=== PATIENT | male | born 1995 | race Caucasian/White ===

== ENCOUNTER 2016-08-05 21:09 | Emergency (ER) | payer BC, OTHER ==
[~2016-08-05] VITALS: Ht 182.9 cm; Wt 84.2 kg
[2016-08-05 21:09] VITALS: Ht 182.9 cm; Wt 84.2 kg
[~2016-08-05 21:09] MED LIST: CIPR-280 PO; no routine meds
--- OUTSIDE RECORDS SUMMARY | 2016-08-05 21:13 | XMS REPORT | Continuity of Care Document ---
Author Author [facility] Organization [facility] Address Unknown Phone Unavailable Support Name Relationship Address Phone GORAN ACKERMAN MD Caregiver [address] [place] [address] [place] [address] MICHAEL KIRK Next Of Kin [address] [place], [place] [phone] Insurance Providers Payer Name Policy Number Subscriber Name Relationship Self Pay Tomás Kirk 16 Self Advance Directives Directive Response Recorded Date/Time Advanced Directives Type None 06/11/14 12:26am Problems Medical Problems Problem Onset Date Status 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 Plan of Care No plan of care. Functional Status Query Response Date Recorded Physical Hygiene Self June 11, 2014 12:30am Disabilities None June 11, 2014 12:30am Devices Used None June 11, 2014 12:30am Dressing Self June 11, 2014 12:30am Ambulation Self June 11, 2014 12:30am Diet Self June 11, 2014 12:30am Mental Status Alert Oriented June 11, 2014 3:50am Disabilities None June 11, 2014 12:30am Devices Used None June 11, 2014 12:30am Physical Hygiene Self June 11, 2014 12:30am Dressing Self June 11, 2014 12:30am Ambulation Self June 11, 2014 12:30am Diet Self June 11, 2014 12:30am Allergies, Adverse Reactions, Alerts Allergen Type Severity Reaction Status Last Updated No Known Allergies Active 06/11/14 Immunizations Name Given Type Hx Influenza Vaccination No Historical Hx Pneumococcal Vaccination No Historical Hx Tetanus, Diptheria, Pertussis Y 2010 Historical Hx Influenza Vaccination No Historical Hx Tetanus, Diptheria, Pertussis Y 2009 Historical Vital Signs Acute Vital Signs Vital Response Date/Time Temperature (Fahrenheit) 99.6 deg F (96.8 - 99.1) Temperature (Calculated Celsius) 37.01461 degrees C (36.0 - 37.3) Pulse Rate (adult) 107 bpm (60 - 100) Respiratory Rate 24 breaths/min (10 - 20) O2 Sat by Pulse Oximetry 96 % (90 - 100) Blood Pressure 120/60 mm Hg Height 6 ft 1 in Weight 176 lb Body Mass Index 23.0 kg/m^2 Results Test Source Date Result Interp. Ref. Range Comments Monoscreen June 11, 2014 12:49am Negative - Influenza Type B Antigen June 11, 2014 12:49am Negative - Negative for Flu B protein antigen. Assay sensitivity is90%. Influenza Type A Antigen June 11, 2014 12:49am Negative - Negative for Flu A protein antigen. Assay sensitivity is90%. Reactive Lymphocytes # June 11, 2014 12:49am 0.4 T/MM3 H 0-0 Monocytes # (Manual) June 11, 2014 12:49am 0.9 T/MM3 H 0-0.8 Lymphocytes # (Manual) June 11, 2014 12:49am 0.7 T/MM3 L 1-4.8 Neutrophils # (Manual) June 11, 2014 12:49am 2.5 T/MM3 N 1.8-7.7 Band Neutrophils # June 11, 2014 12:49am 0.6 T/MM3 - Reactive Lymphocytes % June 11, 2014 12:49am 7.0 % H 0-0 Monocytes % (Manual) June 11, 2014 12:49am 18.0 % H 0-9.0 Lymphocytes % (Manual) June 11, 2014 12:49am 14.0 % L 23-45 Band Neutrophils % June 11, 2014 12:49am 12.0 % H 0-6 Neutrophils % (Manual) June 11, 2014 12:49am 49.0 % N 33-66 Alanine Aminotransferase (ALT/SGPT) June 11, 2014 12:49am 38 U/L N 21-72 Albumin June 11, 2014 12:49am 4.7 G/DL N 3.5-5.0 Albumin/Globulin Ratio June 11, 2014 12:49am 1.5 RATIO N 1.1-2.2 Alkaline Phosphatase June 11, 2014 12:49am 55 U/L N 38-126 Anion Gap June 11, 2014 12:49am 14 MEQ/L N 5-15 Aspartate Amino Transf (AST/SGOT) June 11, 2014 12:49am 43 U/L N 17- 59 BUN/Creatinine Ratio June 11, 2014 12:49am 13 RATIO N 6-26 Blood Urea Nitrogen June 11, 2014 12:49am 15.0 MG/DL N 9-20 Calcium Level June 11, 2014 12:49am 9.3 MG/DL N 8.4-10.2 Calculated Osmolality June 11, 2014 12:49am 267 MOSM/KG N 261-280 Carbon Dioxide Level June 11, 2014 12:49am 30 MEQ/L N 22-30 Chemistry Specimen Hemolysis June 11, 2014 12:49am < 15 0-25 0-25 : No Hemolysis.26-70: Slight Hemolysis - can falsely elevate K and Urine Protein. 71-285: Moderate Hemolysis - can falsely elevate K, Troponin I, CA 19-9, PTH, CSF GLucose, and Urine Protein, and can falsely decrease Phenytoin. 286-999: Gross Hemolysis - can falsely elevate K, Troponin I, CA 19-9, PTH, CSF Glucose, and Urine Protine, and can falsely decrease Phenytoin. Recommend specimen recollection. Chloride Level June 11, 2014 12:49am 94 MEQ/L L 98-107 Creatinine June 11, 2014 12:49am 1.2 MG/DL N 0.8-1.5 Globulin June 11, 2014 12:49am 3.1 G/DL N 2.4-3.6 Glomerular Filtration Rate Calc June 11, 2014 12:49am 77 - Glucose Level June 11, 2014 12:49am 95 MG/DL N 75-110 Hematocrit June 11, 2014 12:49am 45.2 % N 41-53 Hemoglobin June 11, 2014 12:49am 15.9 GM/DL N 13.5-17.5 Icterus Index June 11, 2014 12:49am < 2 0-7 Lab Scanned Report October 07, 2013 7:29pm LAB TEST FORM REQUEST [id number] - Mean Corpuscular Hemoglobin June 11, 2014 12:49am 30.1 UUG N 26-34 Mean Corpuscular Hemoglobin Concent June 11, 2014 12:49am 35.2 GM/DL N 31-37 Mean Corpuscular Volume June 11, 2014 12:49am 85.4 UM3 N 80-100 Mean Platelet Volume June 11, 2014 12:49am 10.2 UM3 N 9.4-12.4 Platelet Count June 11, 2014 12:49am 133 T/MM3 N 130-400 Potassium Level June 11, 2014 12:49am 3.7 MEQ/L N 3.6-5 RDW Standard Deviation June 11, 2014 12:49am 36.0 FL L 36.9-50.2 Red Blood Count June 11, 2014 12:49am 5.29 M/MM3 N 4.50-5.90 Sodium Level June 11, 2014 12:49am 138 MEQ/L N 134-144 Total Bilirubin June 11, 2014 12:49am 0.70 MG/DL N 0.20-1.30 Total Protein June 11, 2014 12:49am 7.8 G/DL N 6.3-8.2 Turbidity June 11, 2014 12:49am < 20 0-20 Urinalysis Comment June 11, 2014 1:00am Microscopic not ind. - Has specimen been collected/obtained? Y Urine Bilirubin June 11, 2014 1:00am Negative - Has specimen been collected/obtained? Y Urine Blood June 11, 2014 1:00am Negative - Has specimen been collected/obtained? Y Urine Collection Type June 11, 2014 1:00am Voided-not cc-midstr - Has specimen been collected/obtained? Y Urine Color June 11, 2014 1:00am Yellow - Has specimen been collected/obtained? Y Urine Glucose (UA) June 11, 2014 1:00am Negative - Has specimen been collected/obtained? Y Urine Ketones June 11, 2014 1:00am Negative - Has specimen been collected/obtained? Y Urine Leukocyte Esterase June 11, 2014 1:00am Negative - Has specimen been collected/obtained? Y Urine Nitrite June 11, 2014 1:00am Negative - Has specimen been collected/obtained? Y Urine Protein June 11, 2014 1:00am Negative - Has specimen been collected/obtained? Y Urine Specific [place] June 11, 2014 1:00am 1.010 L - Has specimen been collected/obtained? Y Urine Turbidity June 11, 2014 1:00am Clear - Has specimen been collected/obtained? Y Urine Urobilinogen June 11, 2014 1:00am 0.2 EU/DL - Has specimen been collected/obtained? Y Urine pH June 11, 2014 1:00am 6.0 - Has specimen been collected/ obtained? Y White Blood Count June 11, 2014 12:49am 5.0 T/MM3 N 4.5-11.0 Procedures No known history of procedures. Encounters Encounter Location Date/Time Departed Emergency Room [facility] 06/11/14 12:21am Recent Diagnosis
--- NOTE | 2016-08-05 21:43 | NUR ---
PROVIDER Maya JOHNSON FANCY WIRE DRAWER IN TO SEE PATIENT.
--- NOTE | 2016-08-05 21:49 | ERPDOC ---
Departure Disposition Decision Date: Aug 05, 2016 Disposition Decision Time: 22:38 Disposition: 01 DISCHARGED HOME, SELF-CARE Impression Impression Impression: Primary Impression: Nausea & vomiting Vomiting type: unspecified Vomiting Intractability: non-intractable Qualified Codes: R11.2 - Nausea with vomiting, unspecified Additional Impression: Carpopedal spasm Severity: Moderate Condition: Stable Seen By: Mid-level only Patient Instructions: Carpopedal Spasm (ED) Problems/Meds/Labs Reviewed?: Yes Medications reviewed and manag: Yes Additional Instructions: Take small frequent sips of clear liquids at home to maintain hydration. If you continue to have problems with the spasms then please follow up with your primary care provider for reevaluation. Your labs today were all normal here. Return to Er with any worsening symptoms or new issues/concerns. Follow up care ordered?: Yes Mental Status: Alert HPI - General Medical General Chief Complaint: Upper Extremity Pain Stated Complaint: CANNOT CONTROL BODY Time Seen by Provider: 21:11 Source: patient Exam Limitations: no limitations HPI - General Medical Initial Comments He was at home tonight and had onset of vomiting around 1700. He vomited x3 and after the third time he had difficulty breathing. He states that it felt hard to breath and then he had onset of spasms in his hands and feet and around his mouth. This lasted for about 5 minutes in varying degrees of spasms he felt. Upon arrival to ER it has lessened quite a bit but he did notice that his right hand did spasm with tightening of the blood pressure cuff. He has never had this happen before. He denies any fever or chills or abdominal pain or diarrhea. Occurred At: home Onset: Rapid Duration: 1 hr Severity: moderate Associated Symptoms: nausea/vomiting (x3 today), DENIES: chest pain, cough, diaphoresis, fever/chills, headaches, loss of appetite, malaise, rash, seizure, shortness of breath, syncope, weakness Hx of Similar Symptoms: No Allergies: Coded Allergies: No Known Allergies (Unverified , 08/05/16) Past History Past Medical History Pt denies signifigant PMH Surgical History Denies Surgeries Vaccines Hx Influenza Vaccination: No Hx Pneumococcal Vaccination: No Hx Tetanus, Diptheria, Pertuss: Yes (2009) Review of Systems Constitutional Constitutional: DENIES: chills, dizziness, fatigue, fever, weakness ENMT Ears: DENIES: drainage, pain Sinuses: congestion (with green mucus), DENIES: rhinorrhea Mouth/Throat: DENIES: painful swallowing, scratchy throat, sore throat Cardiovascular Cardiac: DENIES: chest pain, orthopnea Rhythm/Rate: DENIES: irregular beat, palpitations Pulmonary Respiratory: DENIES: cough, dyspnea, sputum, tachypnea GI Upper Abdomen: DENIES: nausea, pain, vomiting Lower Abdomen: DENIES: constipation, diarrhea, pain Musculoskeletal General: cramps (bilateral hands and feet) Integumentary Skin: DENIES: rash Neurological General: DENIES: headache, numbness, tingling, weakness Physical Exam General General Nourishment: well nourished, well developed, appears stated age, no acute distress, adult General Body Habitus: well groomed Vitals and Pain First Documented Vital Signs Date Time Temp Pulse Resp B/P Pulse Ox O2 Delivery O2 Flow Rate FiO2 08/05/16 21:09 99.4 101 16 121/65 99 Room Air Weight: Kilograms: 84.200 Height (feet): 6 Height (inches): 0 Triage Pain Scale: RN VS reviewed by Provider: Yes Normal Exams: Neck: Full range of motion, without adenopathy, JVD, bruits or thyromegaly Chest/Resp: Clear all singleton, with good airflow, and symmetry bilaterally CV: Regular rate and rhythm, without murmur or gallop, Pulses 2+ all extremities, capillary refill, <2 seconds all ext., no pedal edema noted Abdomen: Bowel sounds positive, soft, non-tender, non-distended, no hepatosplenomegaly, masses or bruits noted Lymphatic: No lymphadenopathy, or lymphedema noted Musculoskeletal: No tenderness, or deformity noted, good range of motion, all extremities Integumentary: No rashes, hives, or bruising noted Neurologic: Patient is alert, and oriented, cranial nerves, motor/sensory/ cerebellar, exams w/o gross deficits, to observation Psychiatric: Patient exhibits, appropriate attention, emotion and affect ENMT (brief) ENMT Brief: FOUND: TM clear, TM good light reflex, ear canals clear, mucosa moist, normal dentition, normal tonsils, NOT FOUND: lesions, nasal erythema, nasal exudate, nasal swelling, petechiae, pharnyx erythema, tonsillar deviation Differential Diagnoses Considering: Hypo/Hyperglycemia, Hypo/Hyperkalemia, Hypo/Hypernatremia, Other ( hypo/hypercalcemia, anxiety, carpopedal spasms, seizure disorder) Progress Results/Orders Orders Procedure Category Date Status Time Cbc W/Auto LAB 08/05/16 Complete Diff-Reflex Manual Bmp - Basic Metabolic LAB 08/05/16 Complete Panel Lab Results Laboratory Tests Test 08/05/16 22:12 White Blood Count 6.3T/MM3 Red Blood Count 5.34M/MM3 Hemoglobin 16.3GM/DL Hematocrit 45.5% Mean Corpuscular Volume 85.2UM3 Mean Corpuscular Hemoglobin 30.5UUG Mean Corpuscular Hemoglobin Concent 35.8GM/DL RDW Standard Deviation 35.8FL Platelet Count 160T/MM3 Mean Platelet Volume 10.1UM3 Immature Granulocyte % (Auto) % Neutrophils (%) (Auto) % Lymphocytes (%) (Auto) % Monocytes (%) (Auto) % Eosinophils (%) (Auto) % Basophils (%) (Auto) % Absolute Immature Granulocyte (auto T/MM3 Absolute Neutrophils (auto) T/MM3 Absolute Lymphocytes (auto) T/MM3 Absolute Monocytes (auto) T/MM3 Absolute Eosinophils (auto) T/MM3 Absolute Basophils (auto) T/MM3 Neutrophils % (Manual) 79.0% Band Neutrophils % 3.0% Lymphocytes % (Manual) 7.0% Reactive Lymphocytes % 1.0% Monocytes % (Manual) 10.0% Absolute Neutrophils (Manual) 5.0T/MM3 Band Neutrophils # 0.2T/MM3 Lymphocytes # (Manual) 0.4T/MM3 Reactive Lymphocytes # 0.1T/MM3 Monocytes # (Manual) 0.6T/MM3 Red Cell Morphology Comment Normal Turbidity < 20 Sodium Level 145MEQ/L Potassium Level 3.4MEQ/L Chloride Level 102MEQ/L Carbon Dioxide Level 28MEQ/L Anion Gap 15MEQ/L Blood Urea Nitrogen 18.0MG/DL Creatinine 0.9MG/DL Glomerular Filtration Rate Calc 105 BUN/Creatinine Ratio 20RATIO Glucose Level 117MG/DL Calculated Osmolality 282MOSM/KG Calcium Level 10.2MG/DL Icterus Index < 2 Chemistry Specimen Hemolysis < 15 Progress Progress CBC and BMP today are essentially normal. K+ is 3.4 and sodium is 145. Calcium is normal however. Will have him monitor for continued symptoms at home. Follow up with his PCP if any further concerns. TAMMIE JOHNSON APRN Aug 05, 2016 21:49
--- NOTE | 2016-08-05 22:15 | NUR ---
TOUR PRODUCTION SUPERVISOR IN ROOM DRAWING BLOOD.
[2016-08-05 22:18] LABS: HCT - HEMATOCRIT 45.5 % (41-53); HGB - HEMOGLOBIN 16.3 GM/DL (13.5-17.5); MEAN CORPUSCULAR HGB 30.5 UUG (26-34); MEAN CORPUSCULAR HGB CONC(MCHC 35.8 GM/DL (31-37); MEAN CORPUSCULAR VOLUME 85.2 UM3 (80-100); MEAN PLATELET VOLUME 10.1 UM3 (9.4-12.4); RED BLOOD COUNT 5.34 M/MM3 (4.50-5.90); WBC - WHITE BLOOD COUNT 6.3 T/MM3 (4.5-11.0)
[2016-08-05 22:27] LABS: ANION GAP 15 MEQ/L (5-15); BUN/CREATININE RATIO 20 RATIO (6-26); CALCIUM 10.2 MG/DL (8.4-10.2); CHLORIDE 102 MEQ/L (98-107); CO2 - CARBON DIOXIDE 28 MEQ/L (22-30); CREATININE 0.9 MG/DL (0.8-1.5); GLOMERULAR FILTRATION RATE 105; GLUCOSE 117 MG/DL (75-110); POTASSIUM 3.4 MEQ/L (3.6-5); SODIUM 145 MEQ/L (134-144)
[2016-08-05 22:33] LABS: BAND NEUTROPHILS # 0.2 T/MM3; LYMPHOCYTES # (MANUAL) 0.4 T/MM3 (1-4.8); MONOCYTES # (MANUAL) 0.6 T/MM3 (0-0.8); REACTIVE LYMPHOCYTES # 0.1 T/MM3 (0-0)
--- NOTE | 2016-08-05 22:35 | NUR ---
STATUS PATIENT IS RESTING IN BED WITH NO DISTRESS NOTED. FAMILY MEMBER AT BEDSIDE.
[2016-08-05 22:58] VITALS: BP 111/58; PULSE 98; RESP 16; TEMP 99.4; O2SAT 95
--- OUTSIDE RECORDS SUMMARY | 2016-08-05 23:04 | XMS REPORT | Continuity of Care Document ---
Author Author [facility] Organization [facility] Address Unknown Phone Unavailable Support Name Relationship Address Phone GORAN ACKERMAN MD Caregiver [address] [place] [address] [place] [address] MICHAEL KIRK Next Of Kin [address] [place], [place] [phone] Insurance Providers Payer Name Policy Number Subscriber [...] F (96.8 - 99.1) Temperature (Calculated Celsius) 37.85434 degrees C (36.0 - 37.3) Pulse Rate [...] 07, 2013 7:29pm LAB TEST FORM REQUEST [id number] - Mean Corpuscular Hemoglobin June 11, 2014 [...] Has specimen been collected/obtained? Y Urine Specific [place] June 11, 2014 1:00am 1.010 L - [...] Encounters Encounter Location Date/Time Departed Emergency Room [facility] 06/11/14 12:21am Recent Diagnosis
== END 2016-08-05 22:58 | disposition home or self-care (01) ==
LOC: ED 21:09
DX: R11.2 Nausea with vomiting, unspecified (principal); R29.0 Tetany
CPT/HCPCS: 36415; 80048; 85025